=== PATIENT | male | born 1955 | race Caucasian/White ===

== ENCOUNTER → 2023-08-13 14:18 | Outpatient (BNVA) | payer MEDICARE, BC, SELFPAY | PROVIDERS: PCP Anesthesiology Pain Medicine; Referring Provider Anesthesiology Pain Medicine; Visit Provider Orthopaedic Surgery | DX: M54.50 Low back pain, unspecified (principal); M54.9 Dorsalgia, unspecified | CPT/HCPCS: 36415; 72100; 80053; 81003; 83036; 85025; 99204 ==

== ENCOUNTER 2023-09-02 07:51 | Day surgery (SDC) | payer MEDICARE, BC, SELFPAY ==
[2023-09-02] VITALS (10 sets, daily range): BP systolic 102–193; BP diastolic 75–106; PULSE 76–97; RESP 16–20; TEMP 36.3–36.6; O2SAT 95–99; BMI 43.2
--- NOTE | 2023-09-02 | XR_ITS ---
WS: [id number] Exam: XR lumbar spine 1V port 10695 Date/Time of Exam: 09/02/2023 12:00 AM Reason For Exam: [employer] AP C-arm image of the thoracic spine obtained for intraoperative planning and localization.
[2023-09-02] MEDS: sodium chloride 0.9% 1,000 ML 30 ML IV (08:37)
--- NOTE | 2023-09-02 08:47 | ANES.PREANE2 ---
Pre-Anesthetic Assessment Height/Weight: Height 1.8 m Weight 140.614 kg Temp Pulse Resp BP Pulse Ox O2 Del Method O2 Flow Rate 97.6 F 76 20 H 193/84 98 Nasal Cannula 4 09/02/23 08:34 09/02/23 08:34 09/02/23 08:34 09/02/23 08:34 09/02/23 08:34 09/02/23 08:34 09/02/23 08:34 Preop Diagnosis: Chronic back pain Operation Date: 09/02/23 09:30 Proposed Procedures p Spinal Cord Stimulator Placement:neurostimulator paddle and battery(Not Applicable) - Roshan Hernandez, DO Familial anesthetic complications: None Was Beta Mehran taken within 24 hours: N/A Was Clonidine taken within 24 hours: N/A Last intake: Intake Last Liquid Date 09/02/23 Last Liquid Time 05:30 Last Solid Date 09/01/23 Last Solid Time 23:55 Social No alcohol and No tobacco Former Exam alert, oriented x 3, clear to auscultation bilaterally and regular rate & rhythm Airway Mallampati: Class III Dentition: other (multiple missing) Comments: Comments: sierra, large neck Pulmonary Chronic Obstructive Pulmonary Disease (4 L NC, informed of increased risk of resp complications) and Sleep Apnea CV/HEM Coronary Artery Disease (CABG) and Hypertension informed of increased risk of cardiac complications GI Gastroesophageal Reflux Disease Metabolic Diabetes Mellitus and Morbid Obesity Anesthetic Plan ASA status: 4 Anesthesia: General Risk of > 500 ml blood loss (7ml/kg in children): No Medications/Allergies Home Medications Medication Instructions Recorded Confirmed Last Taken Type amlodipine 5 mg tablet 5 mg PO DAILY 08/28/23 09/01/23 09/01/23 History atorvastatin 80 mg tablet 80 mg PO DAILY 08/28/23 09/01/23 09/01/23 History bumetanide 1 mg tablet 1 mg PO DAILY 08/28/23 09/01/23 09/01/23 History bupropion HCl 75 mg tablet 75 mg PO BID 08/28/23 09/01/23 09/01/23 History finasteride 5 mg tablet 5 mg PO DAILY 08/28/23 09/01/23 09/01/23 History hydralazine 50 mg tablet 50 mg PO BID 08/28/23 09/01/23 09/01/23 History insulin aspart U-100 100 unit/mL See Rx Instructions .Route .COMPLEX 08/28/23 09/01/23 09/01/23 History (3 mL) subcutaneous pen (Novolog FlexPen U-100 Insulin aspart) insulin glargine 100 unit/mL 90 unit SUBCUT BID 08/28/23 09/01/23 09/01/23 History subcutaneous solution (Lantus U-100 Insulin) ipratropium bromide 17 2 puff inhalation Q6H 08/28/23 09/01/23 09/01/23 History mcg/actuation HFA aerosol inhaler (Atrovent HFA) metformin 500 mg tablet 500 mg PO BID 08/28/23 09/01/23 09/01/23 History metoprolol tartrate 50 mg tablet 75 mg PO BID 08/28/23 09/01/23 09/01/23 History omeprazole 20 mg capsule,delayed 20 mg PO DAILY 08/28/23 09/01/23 09/01/23 History release oxycodone 10 mg tablet 10 mg PO Q6H 08/28/23 09/01/23 09/01/23 History ramipril 10 mg capsule 10 mg PO DAILY 08/28/23 09/01/23 09/01/23 History ranolazine 1,000 mg 1,000 mg PO BID 08/28/23 09/01/23 09/01/23 History tablet,extended release,12 hr spironolactone 25 mg tablet 25 mg PO DAILY 08/28/23 09/01/23 09/01/23 History tamsulosin 0.4 mg capsule 0.4 mg PO DAILY 08/28/23 09/01/23 09/01/23 History Allergies Allergy/AdvReac Type Severity Reaction Status Date / Time Sulfa (Sulfonamide Allergy Unknown Verified 08/28/23 11:58 Antibiotics) Current Medications Generic Name Dose Route Start Last Admin Trade Name Freq PRN Reason Stop Dose Admin Sodium Chloride 1,000 mls @ 30 mls/hr 09/02/23 08:00 09/02/23 08:37 Sodium Chloride 0.9% IV 09/03/23 07:59 30 mls/hr .Q24H HAMZAH Administration Data Anesthesia Cardiac Studies: No Data to Display
--- NOTE | 2023-09-02 09:09 | W.PM.OPSUD ---
Surgery/Procedure H&P Update DATE OF PROCEDURE: September 02, 2023 DATE H&P PERFORMED: 08/28/23 H&P UPDATE INFORMATION: I have reviewed H&P completed within last 30 days, I have examined patient prior to procedure and No changes to prior documentation PREOP DIAGNOSIS: Chronic back pain PLANNED PROCEDURE: Operation Date: 09/02/23 09:30 Proposed Procedures p Spinal Cord Stimulator Placement:neurostimulator paddle and battery(Not Applicable) - Roshan Hernandez DO
[2023-09-02 09:52] LABS: Glucose Point of Care 175 mg/dL (70-110)
[2023-09-02] MEDS: ceFAZolin 2,000 MG in sodium chloride 0.9% (plus) 50 ML 100 MG IV (10:32)
[2023-09-02] MEDS: ceFAZolin 1,000 MG in sodium chloride 0.9% (plus) 50 ML 100 MG IV (10:34)
[2023-09-02] MEDS: vancomycin 1,000 MG SDV 1000 MG XX (11:32)
[2023-09-02] MEDS: lidocaine-epi 1% PF 1:200,000 30 mL SDV INJECTION (11:33)
--- NOTE | 2023-09-02 11:40 | PM.OP ---
Operative Report Date of procedure: September 02, 2023 Pre-op diagnosis: Low back pain Post-op diagnosis: other Post-op diagnosis: Back abscess Procedure done: I&D of back abscess Pathology: Cultures were sent of the back abscess Surgeon: Roshan Hernandez DO Duplicator Punch Set Up Operator: Jude Yuen Duplicator Punch Set Up Operator: The surgical product sales consultant, Jude Yuen, DAMON was needed for his expertise under the microscope. He was important and necessary throughout the procedure to complete in a safe and timely manner. He assisted with patient positioning prepping and draping tissue retraction suctioning of the operative field. A small tissue closure Estimated blood loss (mL): 5 Procedure: Patient was brought to the operative suite after undergoing anesthesia was placed in prone position on his bed well-padded. Patient was prepped draped normal sterile fashion. C-arm was used to find the location where the skin incision was going to be. Skin incision was made as we dissected through the skin layer there was a sebaceous cyst that was infected was extremely foul-smelling. The cyst and pustulant material was then dissected out and irrigated wound was irrigated and the surgery that was planning on being performed which was a neurostimulator was aborted due to the high risk of infection. This point the wound was thoroughly irrigated and vancomycin powder was placed and wound was closed in layered fashion with Vicryl and nylon suture. Sterile dressings were applied and patient was transferred back to the PACU in stable condition.
--- NOTE | 2023-09-02 12:55 | ANE.PACU2 ---
Inpatient post-anesthesia follow up: Airway intact: Yes Vital signs: Temperature 97.4 F Pulse Rate 83 Respiratory Rate 18 Blood Pressure 167/91 Pulse Oximetry 98 Oxygen Delivery Me thod Nasal Cannula Oxygen Flow Rate 4 Fraction of Inspir ed Oxygen Hydration adequate: Yes Nausea and vomiting: No Pain level: 1 Mental status: Baseline
== END 2023-09-02 12:59 | disposition home or self-care (01) ==
PROVIDERS: PCP Anesthesiology Pain Medicine; Visit Provider Orthopaedic Surgery
PROC: (CPT 63685; principal; 2023-09-02 09:20)
PROC: (CPT 10060; 2023-09-02 09:20)
DX: L02.212 Cutaneous abscess of back [any part, except buttock and flank] (principal); J44.9 Chronic obstructive pulmonary disease, unspecified; Z99.81 Dependence on supplemental oxygen; G47.30 Sleep apnea, unspecified; I25.10 Atherosclerotic heart disease of native coronary artery without angina pectoris; Z95.1 Presence of aortocoronary bypass graft; I10 Essential (primary) hypertension; K21.9 Gastro-esophageal reflux disease without esophagitis; E11.9 Type 2 diabetes mellitus without complications; E66.01 Morbid (severe) obesity due to excess calories; Z68.41 Body mass index [BMI] 40.0-44.9, adult; Z79.4 Long term (current) use of insulin; Z79.84 Long term (current) use of oral hypoglycemic drugs
CPT/HCPCS: 10060; 36416; 72020; 76000; 82962; 87070; 87075; 87077; 87176; 87205; J0330; J0690; J1100; J2405; J2704; J3010; J3370; J3490; J7030

== ENCOUNTER → 2023-09-08 15:22 | Outpatient (BNVA) | payer MEDICARE, BC, SELFPAY | PROVIDERS: PCP Anesthesiology Pain Medicine; Visit Provider Orthopaedic Surgery | DX: Z48.89 Encounter for other specified surgical aftercare (principal); L72.3 Sebaceous cyst | CPT/HCPCS: 99024 ==

== ENCOUNTER → 2023-09-17 10:01 | Outpatient (BNVA) | payer MEDICARE, BC, SELFPAY | PROVIDERS: PCP Anesthesiology Pain Medicine; Visit Provider Orthopaedic Surgery | DX: Z47.89 Encounter for other orthopedic aftercare | CPT/HCPCS: 99024 ==

== ENCOUNTER → 2023-11-10 13:42 | Outpatient (BNVA) | payer MEDICARE, BC, SELFPAY | PROVIDERS: PCP Anesthesiology Pain Medicine; Visit Provider Orthopaedic Surgery | DX: Z51.89 Encounter for other specified aftercare (principal) | CPT/HCPCS: 99213 ==

== ENCOUNTER → 2023-11-17 10:51 | Outpatient (BNVA) | payer MEDICARE, BC, SELFPAY | PROVIDERS: PCP Anesthesiology Pain Medicine; Visit Provider Student in an Organized Health Care Education/Training Program | DX: L02.91 Cutaneous abscess, unspecified (principal); L08.9 Local infection of the skin and subcutaneous tissue, unspecified | CPT/HCPCS: 36415; 85651; 86140; 99204 ==

== ENCOUNTER → 2024-05-31 12:57 | Outpatient (BNVA) | payer MEDICARE, BC, SELFPAY | PROVIDERS: PCP Anesthesiology Pain Medicine; Visit Provider Student in an Organized Health Care Education/Training Program | DX: L08.9 Local infection of the skin and subcutaneous tissue, unspecified (principal); L02.91 Cutaneous abscess, unspecified | CPT/HCPCS: 99213 ==

== ENCOUNTER → 2024-06-16 13:41 | Outpatient (BNVA) | payer MEDICARE, BC, SELFPAY | PROVIDERS: PCP Anesthesiology Pain Medicine; Visit Provider Orthopaedic Surgery | DX: Z09 Encounter for follow-up examination after completed treatment for conditions other than malignant neoplasm (principal); Z01.818 Encounter for other preprocedural examination | CPT/HCPCS: 80053; 81003; 81015; 85025; 87077; 87086; 87186; 99214 ==

== ENCOUNTER 2024-07-01 09:00 | Day surgery (SDC) | payer MEDICARE, BC, SELFPAY ==
[2024-07-01] VITALS (12 sets, daily range): BP systolic 134–167; BP diastolic 73–98; PULSE 60–98; RESP 14–25; TEMP 36.1–36.3; O2SAT 94–100; BMI 40.1
--- NOTE | 2024-07-01 09:26 | ANES.PREANE2 ---
Pre-Anesthetic Assessment Height/Weight: Height 1.8 m Preop Diagnosis: Lumbar stenosis with neurogenic claudication Operation Date: 07/01/24 10:50 Proposed Procedures p Paddle Electrode Placement(Not Applicable) - Roshan Hernandez DO s Spinal Cord Stimulator Placement(Not Applicable) - Roshan Hernandez DO Familial anesthetic complications: None Was Beta Mehran taken within 24 hours: Yes Was Clonidine taken within 24 hours: N/A Last intake: > 8hrs Social No alcohol and No tobacco former smoker Exam alert, oriented x 3, clear to auscultation bilaterally and regular rate & rhythm Airway Mallampati: Class IV Dentition: false Comments: Comments: large sierra Pulmonary Chronic Obstructive Pulmonary Disease (now on continuous O2, instead of PRN) and Sleep Apnea CV/HEM Coronary Artery Disease (cabg) Metabolic Diabetes Mellitus and Morbid Obesity Anesthetic Plan ASA status: 4 Anesthesia: General Risk of > 500 ml blood loss (7ml/kg in children): No Other Pertinent Information educated on increased risk of pulmonary complications perioperatively Medications/Allergies Home Medications Medication Instructions Recorded Confirmed Last Taken Type amlodipine 5 mg tablet 5 mg PO DAILY 08/28/23 06/28/24 1 Day Ago History ~06/27/24 atorvastatin 80 mg tablet 80 mg PO DAILY 08/28/23 06/28/24 06/28/24 13:43 History bumetanide 1 mg tablet 1 mg PO DAILY 08/28/23 06/28/24 1 Day Ago History ~06/27/24 bupropion HCl 75 mg tablet 75 mg PO BID 08/28/23 06/16/24 09/01/23 History finasteride 5 mg tablet 5 mg PO DAILY 08/28/23 06/16/24 09/01/23 History hydralazine 50 mg tablet 50 mg PO BID 08/28/23 06/16/24 09/01/23 History insulin aspart U-100 100 unit/mL See Rx Instructions .Route .COMPLEX 08/28/23 06/16/24 09/01/23 History (3 mL) subcutaneous pen (Novolog FlexPen U-100 Insulin aspart) insulin glargine 100 unit/mL 90 unit SUBCUT BID 08/28/23 06/16/24 09/01/23 History subcutaneous solution (Lantus U-100 Insulin) ipratropium bromide 17 2 puff inhalation Q6H 1106/16/24 09/01/23 History mcg/actuation HFA aerosol inhaler (Atrovent HFA) metformin 500 mg tablet 500 mg PO BID 08/28/23 06/16/24 09/01/23 History metoprolol tartrate 50 mg tablet 75 mg PO BID 08/28/23 06/16/24 09/01/23 History omeprazole 20 mg capsule,delayed 20 mg PO DAILY 08/28/23 06/16/24 09/01/23 History release oxycodone 10 mg tablet 10 mg PO Q6H 08/28/23 06/16/24 09/01/23 History ramipril 10 mg capsule 10 mg PO DAILY 08/28/23 06/16/24 09/01/23 History ranolazine 1,000 mg 1,000 mg PO BID 08/28/23 06/16/24 09/01/23 History tablet,extended release,12 hr spironolactone 25 mg tablet 25 mg PO DAILY 08/28/23 06/16/24 09/01/23 History tamsulosin 0.4 mg capsule 0.4 mg PO DAILY 08/28/23 06/16/24 09/01/23 History Allergies Allergy/AdvReac Type Severity Reaction Status Date / Time Sulfa (Sulfonamide Allergy Unknown Verified 07/01/24 09:26 Antibiotics) [facility] Anesthesia Social History Smoking and tobacco/nicotine status: never used tobacco/nicotine Data Anesthesia Cardiac Studies: No Data to Display
--- NOTE | 2024-07-01 09:41 | W.PM.OPSFHP ---
Same Day Surgery H&P Indication for Procedure/HPI DATE OF PROCEDURE: July 01, 2024 CHIEF COMPLAINT/INDICATIONFOR SURGICAL PROCEDURE: Back pain and leg pain PREOP DIAGNOSIS: Lumbar stenosis with neurogenic claudication PLANNED PROCEDURE: Operation Date: 07/01/24 10:50 Proposed Procedures p Paddle Electrode Placement(Not Applicable) - Roshan Hernandez DO s Spinal Cord Stimulator Placement(Not Applicable) - Roshan Hernandez DO Medications/Allergies* Home Medications Medication Instructions Recorded Confirmed Type amlodipine 5 mg tablet 5 mg PO DAILY 08/28/23 07/01/24 History atorvastatin 80 mg tablet 80 mg PO DAILY 08/28/23 07/01/24 History bumetanide 1 mg tablet 1 mg PO DAILY 08/28/23 07/01/24 History bupropion HCl 75 mg tablet 75 mg PO BID 08/28/23 07/01/24 History finasteride 5 mg tablet 5 mg PO DAILY 08/28/23 07/01/24 History hydralazine 50 mg tablet 50 mg PO BID 08/28/23 07/01/24 History insulin aspart U-100 100 unit/mL See Rx Instructions .Route .COMPLEX 08/28/23 07/01/24 History (3 mL) subcutaneous pen (Novolog FlexPen U-100 Insulin aspart) insulin glargine 100 unit/mL 90 unit SUBCUT BID 08/28/23 07/01/24 History subcutaneous solution (Lantus U-100 Insulin) ipratropium bromide 17 2 puff inhalation Q6H 08/28/23 07/01/24 History mcg/actuation HFA aerosol inhaler (Atrovent HFA) metformin 500 mg tablet 500 mg PO BID 08/28/23 07/01/24 History metoprolol tartrate 50 mg tablet 75 mg PO BID 08/28/23 07/01/24 History omeprazole 20 mg capsule,delayed 20 mg PO DAILY 08/28/23 07/01/24 History release oxycodone 10 mg tablet 10 mg PO Q6H 08/28/23 07/01/24 History ramipril 10 mg capsule 10 mg PO DAILY 08/28/23 07/01/24 History ranolazine 1,000 mg 1,000 mg PO BID 08/28/23 07/01/24 History tablet,extended release,12 hr spironolactone 25 mg tablet 25 mg PO DAILY 08/28/23 07/01/24 History tamsulosin 0.4 mg capsule 0.4 mg PO DAILY 08/28/23 07/01/24 History cefdinir 300 mg capsule mg 07/01/24 History cefdinir 300 mg capsule mg 07/01/24 History cefdinir 300 mg capsule mg 07/01/24 History cefdinir 300 mg capsule mg 07/01/24 History Allergies/Adverse Reactions Allergy/AdvReac Type Severity Reaction Status Date / Time Sulfa (Sulfonamide Allergy Unknown Verified 07/01/24 09:26 Antibiotics) Pertinent History/Comorbid Conditions* Social History Smoking and tobacco/nicotine status: never used tobacco/nicotine Pertinent Exam Findings alert and procedure specific exam findings Recommendations Surgery/Procedure today Coding Level of Care Code Acute Code for Zachary Dominguez
[2024-07-01] MEDS: sodium chloride 0.9% 1,000 ML 30 ML IV (10:04)
[2024-07-01] MEDS: ceFAZolin 1,000 mg SDV 1000 MG IVP (10:17)
[2024-07-01] MEDS: ceFAZolin 2,000 mg SDV 2000 MG IVP (10:17)
[2024-07-01 10:47] LABS: Glucose Point of Care 112 mg/dL (70-110)
[2024-07-01] MEDS: lidocaine-epi 1% 20 mL INJ INJECTION (11:01)
[2024-07-01] MEDS: vancomycin 1,000 MG SDV 1000 MG XX (11:02)
--- NOTE | 2024-07-01 11:29 | XR_ITS ---
WS: [id number] XR lumbar spine 2-3V* 51106 REASON FOR EXAM: OR PICS FINDINGS: Placement of dorsal column stimulator at the T8-T9 level. No abnormality. XR/XR lumbar spine 2-3V* [id number] IMPRESSION: Dorsal column stimulator placement.
--- NOTE | 2024-07-01 11:46 | PM.OP ---
Operative Report Date of procedure: July 01, 2024 Pre-op diagnosis: Lumbar stenosis with neurogenic claudication Post-op diagnosis: same Procedure done: 1. Neurostimulator paddle placement 2. Neurostimulator generator placement Surgeon: Roshan Hernandez DO Estimated blood loss (mL): 5 Procedure: 1. Neurostimulator paddle placement 2. Neurostimulator generator placement Patient brought to the procedure after undergoing anesthesia was placed in the prone position. After using C-arm to identify the level the 8 9 level was marked. Skin incisions made subperiosteal dissection was made down to the lamina of T8 and T9. Retractors were placed. Again using a curved curette the lamina of T8 was identified under C arm. Rongeur was used to take down the interspinous ligament and then the drill was used to take down part of the lamina and then curved curette and Kerrison were used to take down the part of the lamina as well as the ligamentum flavum. And then a temporary paddle was placed in order to make sure that there is no blockage of the implant. And then the neurostimulator paddle was then placed and confirmed to be at the T7 body location with the tip of the stimulator at the T6-7 disc base. AP lateral fluoroscopy ensured this in good position. The wires were then sutured into the spinous process of T9. Next tension was brought to performing the pocket for the battery. Skin incision is made and then the battery pocket was made. The wire passer was then passed from the battery pouch to the laminectomy site. Wires were then pulled through placed into the battery and confirmed they were working. Locked in position. Battery was then placed into the battery pouch wound. The wounds were irrigated and vancomycin powder was used in the wound. Wound was closed in a layered fashion with 0 Vicryl 2-0 Vicryl Monocryl suture both the battery and the lamina site. Sterile dressings were applied and patient is transferred to the PACU in stable condition.
--- NOTE | 2024-07-01 12:08 | SUR.PHASEI ---
Oral airway removed at 1207. Patient sleeping, appears comfortable per faces. Has NC in place at 5L with sat at 97%.
--- NOTE | 2024-07-01 13:04 | SUR.PHASEII ---
Informed pt the pharmacy did not fill Oxycodone RX by Dr. Hernandez, as he has pain contract with Dr. Shah. Pt voiced understanding.
--- NOTE | 2024-07-01 13:25 | ANE.PACU2 ---
Inpatient post-anesthesia follow up: Airway intact: Yes Vital signs: Temperature 97.4 F Pulse Rate 60 Respiratory Rate 18 Blood Pressure 154/82 Pulse Oximetry 100 Oxygen Delivery Me thod Nasal Cannula Oxygen Flow Rate 5 Fraction of Inspir ed Oxygen Hydration adequate: Yes Nausea and vomiting: No Pain level: 1 Mental status: Baseline
== END 2024-07-01 13:28 | disposition home or self-care (01) ==
PROVIDERS: PCP Anesthesiology Pain Medicine; Visit Provider Orthopaedic Surgery
PROC: (CPT 63664; principal; 2024-07-01 10:40)
PROC: (CPT 63685; 2024-07-01 10:40)
DX: M48.062 Spinal stenosis, lumbar region with neurogenic claudication (principal); J44.9 Chronic obstructive pulmonary disease, unspecified; Z99.81 Dependence on supplemental oxygen; G47.30 Sleep apnea, unspecified; I25.10 Atherosclerotic heart disease of native coronary artery without angina pectoris; Z95.1 Presence of aortocoronary bypass graft; E11.9 Type 2 diabetes mellitus without complications; E66.01 Morbid (severe) obesity due to excess calories; Z68.41 Body mass index [BMI] 40.0-44.9, adult; Z79.84 Long term (current) use of oral hypoglycemic drugs
CPT/HCPCS: 63655; 63685; 36416; 72100; 76000; 82962; C1778; C1820; J0690; J1100; J2405; J2704; J2710; J3010; J3370; J3490; J7030

== ENCOUNTER → 2024-07-14 12:43 | Outpatient (BNVA) | payer MEDICARE, BC, SELFPAY | PROVIDERS: PCP Anesthesiology Pain Medicine; Visit Provider Orthopaedic Surgery | DX: Z48.89 Encounter for other specified surgical aftercare (principal) | CPT/HCPCS: 99024 ==